=== PATIENT | female | born 1960 | race Caucasian/White ===

== ENCOUNTER 2017-12-18 16:19 | Inpatient (IN) | payer BC ==
[~2017-12-18] VITALS: Ht 157.5 cm; Wt 83.9 kg
--- NOTE | 2017-12-18 16:30 | NUR ---
BB SISTER FOR BIZARRE BEHAVIOR AND SPEECH X 2 DAYS. NAD NOTED, VSS, RESP EVEN AND UNLABORED, PT PUT ON MONITOR, WAITING FOR MD BERRY.
[2017-12-18] MEDS ORDERED: IV NS 0.9% 1,000 ML BAG IV ONE (17:00)
[2017-12-18 17:07] LABS: APPEARANCE,URINE Clear (CLEAR); BILIRUBIN,URINE MODERATE (NEGATIVE); BLOOD, URINE Moderate Ery/uL (NEGATIVE); COLOR,URINE Yellow (YELLOW); KETONES,URINE 40 (NEGATIVE); LEUKOCYTE ESTERASE ,URINE Small (NEGATIVE); NITRITE, URINE Negative (NEGATIVE); PH,URINE 5.5 (5.0-8.0); PROTEIN,URINE 30 mg/dl (NEGATIVE); UGLUCOSE Negative (NEGATIVE); UROBILINOGEN,URINE 0.2 EU/dL (0.2)
[2017-12-18 17:10] LABS: BASOPHILS # (AUTO) 0.2 /CMM (0.0-0.2); BASOPHILS % (AUTO) 2.3 % (0.0-2.0); EOSINOPHILS # (AUTO) 0.1 /CMM (0.0-0.7); HEMATOCRIT 42 % (33-45); HEMOGLOBIN 14.6 g/dL (11.5-14.8); LYMPHOCYTES # (AUTO) 1.5 /CMM (0.8-4.8); LYMPHOCYTES % (AUTO) 21.3 % (20.0-44.0); MEAN CORPUSCULAR HEMOGLOBIN 31 PG (26.0-33.0); MEAN CORPUSCULAR HGB CONC 35 g/dl (31.0-36.0); MEAN CORPUSCULAR VOLUME 89 fL (82-100); MONOCYTES # (AUTO) 0.6 /CMM (0.1-1.30); MONOCYTES % (AUTO) 9.2 % (2.0-12.0); NEUTROPHILS # (AUTO) 4.5 /CMM (1.8-8.9); NEUTROPHILS % (AUTO) 66.2 % (43.0-81.0); PLATELET COUNT (AUTO) 253 /CMM (150-450); RDW COEFFICIENT OF VARIATION 11.8 (11.5-15.0); RED BLOOD CELL COUNT(AUTO) 4.71 MIL/uL (4.0-5.2); WHITE BLOOD COUNT (AUTO) 6.9 K/uL (4.3-11.0)
[2017-12-18 17:23] LABS: CALCIUM, SERUM 9.3 mg/dL (8.5-10.1); CARBON DIOXIDE 27 mmol/L (21-32); CHLORIDE 106 mmol/L (98-107); CREATININE 0.6 mg/dL (0.6-1.3); GLUCOSE 112 mg/dL (74-106); POTASSIUM 3.3 mmol/L (3.5-5.1); SODIUM SERUM 144 mmol/L (136-145); UREA NITROGEN, BLOOD 14 mg/dL (7-18)
[2017-12-18 17:35] LABS: BACTERIA,URINE Few /HPF (None Seen); SQUAMOUS EPITHELIAL CELL,UR Few /HPF (None Seen)
[2017-12-18 17:36] LABS: MUCUS,URINE Moderate /LPF (None Seen); URINE AMORPHOUS URATE Few /HPF (None Seen)
[2017-12-18 17:36] LABS: ALANINE AMINOTRANSFERASE 37 U/L (12-78); ALBUMIN 4.2 g/dL (3.4-5.0); ALKALINE PHOSPHATASE 63 U/L (46-116); ASPARTATE AMINOTRANSFERASE 23 U/L (15-37); BILIRUBIN,DIRECT 0.1 mg/dL (0.0-0.2); BILIRUBIN,TOTAL 0.8 mg/dL (0.2-1.0); TOTAL PROTEIN, SERUM 7.9 g/dL (6.4-8.2)
[2017-12-18 17:39] LABS: ALCOHOL, BLOOD < 3 mg/dL (0-0)
[2017-12-18] MEDS ORDERED: POTASSIUM CHLORIDE 20 MEQ TAB.PRT.SR PO ONE ×2 (18:00→18:16)
--- NOTE | 2017-12-18 18:00 | NUR ---
CALLED NURSING SUP. FOR TELE BED
--- NOTE | 2017-12-18 18:28 | NUR ---
TEXTED DR. ZELAYA FOR MRI APPROVAL.
[2017-12-18] MEDS ORDERED: HYDROCODONE/APAP 5/325MG 1 EACH TABLET PO PRN (18:30)
[2017-12-18] MEDS ORDERED: ACETAMINOPHEN 325 MG TABLET PO PRN (18:30)
[2017-12-18] MEDS ORDERED: MAG HYDROX/AL HYDROX/SIMETH 30 ML UDC PO PRN (18:30)
[2017-12-18] MEDS ORDERED: MAGNESIUM HYDROXIDE 30 ML UDC PO PRN (18:30)
[2017-12-18] MEDS ORDERED: ONDANSETRON HCL/PF 4 MG/2 ML VIAL IVP PRN (18:30)
[2017-12-18] MEDS ORDERED: CEPHALEXIN MONOHYDRATE 500 MG CAPSULE PO ONE ×2 (18:30→18:36)
--- NOTE | 2017-12-18 18:43 | NUR ---
MS 205-1
--- NOTE | 2017-12-18 19:17 | NUR ---
PT TRANSPORTED TO [facility]. SUMMARY REPORT PROVIDED TO MS NURSE FOR VIEWING
--- NOTE | 2017-12-18 19:25 | NUR ---
MS2/RN RECEIVE PATIENT FROM E.R. BY CHARLES ACCOMPANIED BY FRIENDS. PATIENT IS AWAKE, ALERT, ORIENTED TO PERSON, VERY TALKATIVE, ABLE TO ANSWER SOME QUESTIONS BUT MOSTLY ANSWERS QUESTIONS INAPPROPRIATELY, HENCE UNABLE TO GET ADMISSION INFORMATIONS. MOST OF THE INFORMATIONS WERE OBTAINED FROM SON, CÉSAR. PATIENT HAS NO C/O PAIN, NO DISTRESS NOTED, WILL MONITOR.
--- NOTE | 2017-12-18 19:43 | NUR ---
SPOKE TO NURSE ZAYAS .IT CAN BE DONE TOMORROW AM.
[2017-12-18 20:00] VITALS: BP 146/71
[2017-12-18] MEDS: IV NS 0.9% 1,000 ML IV PRN (21:43)
[2017-12-18] MEDS: OLANZAPINE 5 MG/TAB.RAPDIS PO PRN (21:44)
--- NOTE | 2017-12-18 21:44 | NUR ---
MS2/RN PATIENT STILL HYPER VERBAL, ZYPREXA 5 MG PO WAS GIVEN ORDERED. WILL MONITOR.
[2017-12-18] MEDS: CEFTRIAXONE 1 G in IV NS 0.9% 50 ML IV SCH (21:50)
--- NOTE | 2017-12-18 23:17 | NUR ---
MS2/RN PATIENT IS SLEEPING AT THIS TIME, AROUSABLE, APPEAR COMFORTABLE, NO SIGNS OF DISTRESS NOTED,CALL LIGHT IN REACH. WILL CONTINUE TO MONITOR.
--- NOTE | 2017-12-19 06:18 | NUR ---
MS2/RN PATIENT IS AWAKE AT THIS TIME, HAD A GOOD SLEEP, COMFORTABLE, NO DISTRESS NOTED, ALL NEEDS ATTENDED AT THIS TIME. WILL CONTINUE TO MONITOR.
[2017-12-19 06:41] LABS: BASOPHILS % (AUTO) 0.5 % (0.0-2.0); EOSINOPHILS # (AUTO) 0.2 /CMM (0.0-0.7); HEMATOCRIT 36 % (33-45); HEMOGLOBIN 12.6 g/dL (11.5-14.8); LYMPHOCYTES # (AUTO) 1.7 /CMM (0.8-4.8); LYMPHOCYTES % (AUTO) 33.5 % (20.0-44.0); MEAN CORPUSCULAR HEMOGLOBIN 32 PG (26.0-33.0); MEAN CORPUSCULAR HGB CONC 35 g/dl (31.0-36.0); MEAN CORPUSCULAR VOLUME 91 fL (82-100); MONOCYTES # (AUTO) 0.6 /CMM (0.1-1.30); MONOCYTES % (AUTO) 11.2 % (2.0-12.0); NEUTROPHILS # (AUTO) 2.6 /CMM (1.8-8.9); NEUTROPHILS % (AUTO) 51.8 % (43.0-81.0); PLATELET COUNT (AUTO) 210 /CMM (150-450); RDW COEFFICIENT OF VARIATION 12.8 (11.5-15.0); RED BLOOD CELL COUNT(AUTO) 3.96 MIL/uL (4.0-5.2)
[2017-12-19 07:14] LABS: ALBUMIN 3.4 g/dL (3.4-5.0); BILIRUBIN,DIRECT 0.1 mg/dL (0.0-0.2); BILIRUBIN,TOTAL 0.8 mg/dL (0.2-1.0); CALCIUM, SERUM 8.4 mg/dL (8.5-10.1); CREATININE 0.6 mg/dL (0.6-1.3); MAGNESIUM 1.9 mg/dL (1.8-2.4); PHOSPHORUS 4.2 mg/dL (2.5-4.9); TOTAL PROTEIN, SERUM 6.5 g/dL (6.4-8.2)
[2017-12-19 07:23] LABS: POTASSIUM 3.5 mmol/L (3.5-5.1)
[2017-12-19] MEDS: OLANZAPINE 5 MG/TAB.RAPDIS PO PRN (07:30)
[2017-12-19] MEDS: PANTOPRAZOLE 40 MG TABLET.DR PO SCH (07:30)
--- NOTE | 2017-12-19 07:44 | NUR ---
RN MS NOTES PT AWAKE, SITTING IN BED, ALERT TO SELF, DENIES PAIN, HYPER VERBAL, TALKING ABOUT ONE TOPIC TO ANOTHER, WITH CONFUSION, NOT IN DISTRESS, SON AT BEDSIDE, REDIRECTION GIVEN NEEDED, SITTER AT BEDSIDE, MEDICATIONS GIVEN ORDERED, ASSISTED WITH BREAKFAST, SAFETY PRECAUTIONS OBSERVED.
--- NOTE | 2017-12-19 08:00 | NUR ---
RN MS NOTES UNABLE TO OBTAIN BP, PT IS VERY AGITATED.
[2017-12-19] MEDS ORDERED: HYDROCODONE/APAP 5/325MG 1 EACH TABLET PO PRN (08:30)
[2017-12-19] MEDS ORDERED: ACETAMINOPHEN 325 MG TABLET PO PRN (08:30)
[2017-12-19] MEDS ORDERED: CEFTRIAXONE 1GM BAG (ER ONLY) 1 GM/50 ML PIGGYBACK IV SCH (09:00)
--- NOTE | 2017-12-19 10:30 | NUR ---
RN MS NOTES PT IN BED, AWAKE, ALERT, CALM AT THIS TIME, SON CÉSAR AND VISITORS AT BEDSIDE, DENIES PAIN , NOT IN DISTRESS, PT SEEN AND EXAMINED BY DR. SEALS, PLAN OF CARE DISCUSSED WITH PT AND SON, NEW ORDERS GIVEN, WILL CONTINUE TO MONITOR PT.
--- NOTE | 2017-12-19 11:32 | NUR ---
RN MS NOTES PT BACK FROM MRI, CALM AT THIS TIME, PER DAVID, MRI WITHOUT CONTRAST WAS DONE, PT STARTING TO GET ANXIOUS AND WOULD LIKE TO GO BACK TO HER ROOM, MRI WITH CONTRAST NOT DONE.
[2017-12-19] MEDS: QUETIAPINE FUMARATE 25 MG TABLET PO SCH ×2 (11:39→16:41)
--- NOTE | 2017-12-19 12:03 | NUR ---
RN MS NOTES RECEIVED A CALL FROM DR GREENWOOD REGARDING PT'S MRI RESULT, CONCERNING FOR AN ACUTE INFARCT, ROXANE MACHINIST HELPER INFORMED, CAME TO SEE PT, STROKE ASSESSMENT DONE, NEURO CHECK DONE, PT AWAKE, ALERT AND ORIENTED, NO COMPLAINT OF HEADACHE, NO SWALLOWING PROBLEM NOTED, NO DIZZINESS, PLAN OF CARE DISCUSSED WITH PT AND SON CÉSAR, VERBALIZED UNDERSTANDING, PT WATCHING TV.
[2017-12-19] MEDS: ASPIRIN 325 MG TABLET PO SCH (14:29)
[2017-12-19 16:00] VITALS: BP 149/89
--- NOTE | 2017-12-19 18:04 | NUR ---
RN MS NOTES PT IN BED, AWAKE, ALERT AND ORIENTED, NO COMPLAINT OF PAIN, NOT IN DISTRESS, TOLERATING ROOM AIR WELL, AMBULATES INSIDE HER ROOM WITH STEADY GAIT, NO CHANGE IN LOC, CALM AND COOPERATIVE WITH CARE, FAMILY VISITED, ECHO AND CAROTID DOPPLER TAKEN, AWAITING FOR RESULTS, PM CARE RENDERED, TOLERATING CURRENT DIET, NOTED WITH GOOD APPETITE, HAS GOOD ORAL INTAKE, NEEDS ATTENDED.
--- NOTE | 2017-12-19 19:23 | NUR ---
MS RN NOTES RECEIVED ON BED A/O X4,TALKING TO VISITORS,IVF NS AT 75ML/HR RATE IN PROGRESS VIA IV PUMP,NO SITTER PSYCHOSIS, FOR TONIGHT PER REPORT DUE TO SHORT OF STAFF.WILL MONITOR CLOSELY FOR ANY VIOLENT BEHAVIOR.CALL LIGHT IN REACH,NEEDS ANTICIPATED.
[2017-12-19 20:00] VITALS: BP 157/79
[2017-12-19 20:11] VITALS: BP 157/79
[2017-12-19] MEDS: CEFTRIAXONE 1 G in IV NS 0.9% 50 ML IV SCH (20:43)
--- NOTE | 2017-12-19 21:16 | NUR ---
MS RN NOTES IV SITE LEAKING.NEW SALINE LOCK PLACE ON LFA #22,ROCEPHIN IV INFUSING AT THIS TIME.
[2017-12-19] MEDS: ATORVASTATIN 10 MG TABLET PO SCH (22:05)
[2017-12-19] MEDS: TEMAZEPAM 15 MG CAPSULE PO PRN (22:05)
--- NOTE | 2017-12-19 22:05 | NUR ---
MS RN NOTES C/O INSOMNIA,RESTORIL 15MG PO GIVEN.WILL MONITOR HOURS OF SLEEP.
[2017-12-20] MEDS: IV NS 0.9% 1,000 ML IV PRN (06:06)
--- NOTE | 2017-12-20 06:18 | NUR ---
MS RN NOTES CALM AND QUIET THRU OUT SHIFT,NO VIOLENT BEHAVIOR NOTED.MED COMPLIANT.IVF INFUSING WELL ON LFA.IN NO ACUTE DISTRESS.WILL ENDORSE TO DAY NURSE FOR ADITI.
--- NOTE | 2017-12-20 07:15 | NUR ---
RN MS NOTES PT IN BED, ASLEEP, EASY TO AROUSE, ALERT AND ORIENTED, CALM AND PLEASANT, NO COMPLAINT OF PAIN OR ANY DISCOMFORT, RESPIRATIONS NORMAL, CALL LIGHT WITHIN REACH, STATED THAT SHE SLEPT WELL DURING THE NIGHT.
[2017-12-20] MEDS: QUETIAPINE FUMARATE 25 MG TABLET PO SCH ×2 (08:02→17:01)
[2017-12-20] MEDS: PANTOPRAZOLE 40 MG TABLET.DR PO SCH (08:02)
[2017-12-20] MEDS: ASPIRIN 325 MG TABLET PO SCH (08:02)
[2017-12-20 08:40] VITALS: BP 145/76
--- NOTE | 2017-12-20 08:50 | NUR ---
RN MS NOTES PT SEEN BY DR. BEYER, PLAN OF CARE DISCUSSED WITH PT AND SON, VERBALIZED UNDERSTANDING.
--- NOTE | 2017-12-20 13:00 | NUR ---
RN MS NOTES, PT IN BED, AWAKE, WATCHING TV, FAMILY AT BEDSIDE, DENIES PAIN OR ANY DISCOMFORT, PT SEEN BY DR. SEALS, PER MD, PT CAN BE DISCHARGED HOME ONCE MEDICALLY CLEARED.
[2017-12-20 16:24] VITALS: BP 154/96
[2017-12-20] MEDS: AMLODIPINE BESYLATE 5 MG TABLET PO SCH (17:00)
--- NOTE | 2017-12-20 18:30 | NUR ---
RN MS NOTES PT IN BED, AWAKE, ALERT AND ORIENTED, NO COMPLAINT OF PAIN, NOT IN DISTRESS, WALKING INSIDE THE ROOM WITH SLOW AND STEADY GAIT, TOLERATING CURRENT DIET WELL, CALL LIGHT WITHIN REACH, FAMILY AT BEDSIDE, SEEN BY ROXANE, PLAN FOR DISCHARGE TOMORROW, ALL NEEDS ATTENDED.
--- NOTE | 2017-12-20 19:30 | NUR ---
MS RN NOTES RECEIVED ON BED A/O X4,CONVERSANT,SUSPICIOUS AT TIMES,FAMILY MEMBERS AT BEDSIDE.SALINE LOCK LFA INTACT AND PATENT.C/O EDUARDO LEFT HEEL 5/10 ON PAIN SCALE.WILL MEDICATE.CALL LIGHT IN REACH,NEEDS ANTICIPATED.
--- NOTE | 2017-12-20 19:48 | NUR ---
MS RN NOTES PAIN MANAGEMENT C/O PAIN VIA LEFT KWADWO 5/10 ON PAIN SCALE,NORCO 5/325MG,1 TAB PO GIVEN ORDERED.
[2017-12-20 20:00] VITALS: BP_SYST 130; BP_SYST 165; BP_DIAS 82; BP_DIAS 85
[2017-12-20] MEDS: CEFTRIAXONE 1 G in IV NS 0.9% 50 ML IV SCH (20:53)
[2017-12-20] MEDS: ATORVASTATIN 10 MG TABLET PO SCH (20:54)
[2017-12-20] MEDS: TEMAZEPAM 15 MG CAPSULE PO PRN (20:54)
--- NOTE | 2017-12-20 20:54 | NUR ---
MS RN NOTES C/O INSOMNIA,RESTORIL 15MG PO GIVEN ORDERED AND PER PATIENT REQUEST AND FAMILY
--- NOTE | 2017-12-21 01:00 | NUR ---
MS RN NOTES SOUND ASLEEP WITH RESTORIL,KEPT WARM AND COMFORTABLE.
--- NOTE | 2017-12-21 04:00 | NUR ---
MS RN NOTES GOT UP EARLY,SAYING GOOD MORNING TO STAFF AT THE NURSES STATION.SON CLAIMED SHE'S NOT HERSELF AT THE MOMENT.NEEDS FREQUENT RE ORIENTATION.
--- NOTE | 2017-12-21 06:19 | NUR ---
MS RN NOTES AWAKE,TALKING WITH HIS SON,WITH EPISODE OF LABILITY.EASILY GET AGITATED.
--- NOTE | 2017-12-21 06:21 | NUR ---
MS RN NOTES POSSIBLE DISCHARGE TO HOME TODAY.MEDICALLY CLEARED BY ROXANE ACNP.IN NO ACUTE DISTRESS.NO VIOLENT BEHAVIOR NOTED.WILL ENDORSE TO DAY NURSE FOR ADITI.
--- NOTE | 2017-12-21 07:47 | NUR ---
RN NOTES PATIENT A/OX3, PLEASANT LADY, SON AT BEDSIDE, PATIENT AMBULATES IN THE ROOM, NO S/SX OF DISTRESS NOTED, NO COMPLAINT OF PAIN OR DISCOMFORT, NEEDS ATTENDED AND MET, CALL LIGHT WITHIN REACH, WILL CONTINUE TO MONITOR.
[2017-12-21 08:00] VITALS: BP 156/76
[2017-12-21] MEDS: AMLODIPINE BESYLATE 5 MG TABLET PO SCH (08:34)
[2017-12-21] MEDS: QUETIAPINE FUMARATE 25 MG TABLET PO SCH (08:34)
[2017-12-21] MEDS: PANTOPRAZOLE 40 MG TABLET.DR PO SCH (08:34)
[2017-12-21] MEDS: ASPIRIN 325 MG TABLET PO SCH (08:34)
[2017-12-21] MEDS: OLANZAPINE 5 MG/TAB.RAPDIS PO SCH (10:07)
[2017-12-21] MEDS: LORAZEPAM 1 MG TABLET PO ONE ×2 (10:36→10:42)
--- NOTE | 2017-12-21 10:43 | NUR ---
RN NOTES CALLED DR. SEALS, RECEIVED ORDER FOR ATIVAN, PATIENT IS BECOMING RESTLESS AND ANXIOUS. PATIENT'S VITALS STABLE, ROXANE HAMILTON FICTION AND NONFICTION AUTHOR MADE AWARE, STATED TO GIVE ATIVAN. ATIVAN GIVEN TO PATIENT, BUT PATIENT DROPPED IT ON THE FLOOR. PHARMACY MADE AWARE, MEDICATION WASTED, WITNESSED BY ANOTHER RN ALESIA.
[2017-12-21] MEDS ORDERED: LORAZEPAM 1 MG TABLET PO ONE (11:00)
[2017-12-21] MEDS ORDERED: LORAZEPAM 1 MG TABLET PO PRN (13:30)
--- NOTE | 2017-12-21 14:00 | NUR ---
RN NOTES PATIENT SEEN BY ROXANE HAMILTON NP, RECEIVED NEW ORDER FOR ATIVAN. MD SPOKE WITH THE PATIENT AND TO DISCUSS PLAN OF CARE AND PATIENT CONDITION. PATIENT APPEARS TO BE CALMER AT THIS TIME, NO S/SX OF ANXIOUSNESS AND RESTLESSNESS. NEEDS ATTENDED AND MET, CALL LIGHT WITHIN REACH, WILL CONTINUE TO MONITOR.
--- NOTE | 2017-12-21 15:51 | NUR ---
Social service consult requested by MADELAINE Castellano for acute psychosis. Pt. is a 57 year old female who was admitted to [facility] for psychosis. SW met with pt. bedside. Pt. is alert and oriented x 3. Pt. resides in [place], and gave SW her address at [address] SW inquired with pt. that its a po box and not a home address. Pt. stated she resides a block away but wouldn't give SW the address to the residences. Pt's thought process is disorganized. Pt. is currently going through a divorce. Pt's emergency contacts are her friend Lakesha and her son CÉSAR, . Pt. states she resides alone. Pt. drinks 2 glasses of wine per day or approximately 2 bottles per week. Pt. at times will have vodka with a chaser such as orange juice. Pt. denies using any drugs at this time. Pt. was seen by psychiatrist, Dr. Kong earlier today. Pt. does not have a history of psychiatric hospitalizations or diagnoses. Pt. denies suicidal/homicidal ideations and visual/auditory hallucinations at this time. No other social service needs are required at this time. SW is available if needed.
[2017-12-21 16:00] VITALS: BP 154/80
[2017-12-21] MEDS: DOCUSATE SODIUM 100 MG CAPSULE PO SCH (16:22)
--- NOTE | 2017-12-21 16:55 | NUR ---
RN NOTES PATIENT PULLED OUT IV HEPLOCK, INFORMED ROXANE HAMILTON ANALYTICS INTERN, PER ANALYTICS INTERN, ITS OK FOR PATIENT TO HAVE NO IV ACCESS, SHE DOESN'T NEED IT AT THIS TIME.
--- NOTE | 2017-12-21 18:57 | NUR ---
RN NOTES PATIENT ALERT AND ORIENTED X4, APPEARS TO BE CALM AND COOPERATIVE AT THIS TIME, NO S/SX OF ANXIOUSNESS NOTED, AT BEDSIDE, LEFT TO TAKE SERVICE DOG HOME BUT WILL COME BACK TO STAY THE NIGHT WITH THE PATIENT. NEEDS ATTENDED AND MET, CALL LIGHT WITHIN REACH, WILL ENDORSE TO GEOCHEMICAL LABORATORY TECHNICIAN FOR ADITI.
--- NOTE | 2017-12-21 19:40 | NUR ---
MS RN NOTE: PATIENT RESTING IN BED, NO ACUTE DISTRESS NOTED. BREATHING EVEN AND UNLABORED, NO SOB NOTED. PATIENT WITH NO IV ACCESS, MD AWARE. BED LOCKED AND IN LOWEST POSITION, CALL LIGHT IN REACH. WILL CONTINUE TO MONITOR.
[2017-12-21 20:00] VITALS: BP 149/76
[2017-12-21] MEDS: ATORVASTATIN 10 MG TABLET PO SCH (22:04)
--- NOTE | 2017-12-21 22:15 | NUR ---
MS RN NOTE: PATIENT ANXIOUS AND REQUESTING FOR ANXIETY MEDICATION. ATIVAN 1MG ORAL GIVEN PER MD ORDER. WILL CONTINUE TO MONITOR.
--- NOTE | 2017-12-22 06:30 | NUR ---
MS RN NOTE: PATIENT RESTING IN BED, NO ACUTE DISTRESS NOTED. BREATHING EVEN AND UNLABORED, NO SOB NOTED. BED LOCKED AND IN LOWEST POSITION, CALL LIGHT IN REACH. WILL ENDORSE TO DAY NURSE TO CONTINUE WITH PLAN OF CARE.
--- NOTE | 2017-12-22 07:21 | NUR ---
MS RN OPENING NOTES PATIENT RECEIVED AWAKE IN BED IN NO ACUTE SIGNS OF DISTRESS. AT BEDSIDE. A/O X 3, QUIET, CALMED AND CONVERSANT, DENIES PAIN OR DISCOMFORTS AT THIS TIME. WILL CONTINUE TO MONITOR.
[2017-12-22 08:00] VITALS: BP 139/84
[2017-12-22] MEDS: ASPIRIN 325 MG TABLET PO SCH (08:23)
[2017-12-22] MEDS: PANTOPRAZOLE 40 MG TABLET.DR PO SCH (08:23)
[2017-12-22] MEDS: DOCUSATE SODIUM 100 MG CAPSULE PO SCH (08:23)
[2017-12-22] MEDS: OLANZAPINE 5 MG/TAB.RAPDIS PO SCH (08:23)
[2017-12-22] MEDS: AMLODIPINE BESYLATE 5 MG TABLET PO SCH (08:24)
--- NOTE | 2017-12-22 13:55 | NUR ---
RN NOTES PT SEEN AND EVALUATED BY MADELAINE NARANJO WITH ORDER TO DISCHARGE PT HOME.
[2017-12-22] MEDS ORDERED: AMLO5TAB2 PO (14:30)
[2017-12-22] MEDS ORDERED: ASPI-605 PO (14:30)
[2017-12-22] MEDS ORDERED: ATOR10TA PO (14:30)
[2017-12-22] MEDS ORDERED: OLAN5TAB6 PO (14:30)
[2017-12-22 16:00] VITALS: BP 142/80
--- NOTE | 2017-12-22 16:56 | NUR ---
RN DISCHARGED NOTES PATIENT DISCHARGED HOME IN STABLE CONDITION. A/O X 3, PLEASANT, COOPERATIVE WITH NO AGGRESSIVE BEHAVIOR NOTED. V/S TAKEN AND RECORDED. SKIN IS INTACT. BELONGINGS CHECKED, COUNTED AND SIGNED FORM. EXIT CARE AND HEALTH TEACHINGS GIVEN TO PT'S AND VERBALIZED UNDERSTANDING. PT LEFT UNIT AT 1650 AMBULATORY ACCOMPANIED BY AND CHILDREN. SUPERCVISOR AWARE OF DISCHARGE.
== END 2017-12-22 16:45 | disposition home or self-care (01) | DRG 689 ==
LOC: ER 16:22 → MEDSG2 19:07
PROVIDERS: ADMIT Nurse Practitioner Acute Care; ATTEND Nurse Practitioner Acute Care
DX: N39.0 Urinary tract infection, site not specified (principal); G92 Toxic encephalopathy; F43.9 Reaction to severe stress, unspecified; I10 Essential (primary) hypertension; F29 Unspecified psychosis not due to a substance or known physiological condition; F32.9 Major depressive disorder, single episode, unspecified; F10.10 Alcohol abuse, uncomplicated; Y90.0 Blood alcohol level of less than 20 mg/100 ml
CPT/HCPCS: 36415; 70450-TC; 70551-TC; 71045-TC; 80048-TC; 80061-TC; 80076-TC; 80305; 81000-TC; 83735-TC; 84100-TC; 84443-TC; 85025-TC; 87081-TC; 87086-TC; 93307-TC; 93880-TC; A4216; G0480; J0696; J7030; Z7610